=== PATIENT | male | born 1950 | race Caucasian/White ===

== ENCOUNTER → 2016-11-30 | Outpatient (CLI) | payer OTHER ==
--- NOTE | 2016-12-02 07:54 | PAP/PSG TECHNICIAN REPORT ---
[facility] Instrument Mechanic Polysomnogram Report Study name: None Report date: 12/01/2016 Study date: 11/30/2016 Referring Physician: Eddy Conde M.D. Name: NICKIE LEAL Interpreting Physician: Erik Rosario D.O. Date of : 1950 Instrument Mechanic: NICKI Mir. Sex: Male Age: 66 StudyType: PSG Weight: 200 lbs Height: 66 years, Height 5' 9" Neck Circum:15.5inches BMI: 29.53 Medications: Fish Oil, Pravastatin 40mg, Verapamil HCl 240mg, Patient History Study started on room air with no ETCO2 monitoring in room #8. 66 yr old male here tonight for a diagnostic psg. He said his complains of loud snoring and witnessed apnea. He dies have EDS. His ESS=9/24. Neck circ=15.5inches. He normally sleeps on his sides and back. Parameters Monitored NPSG: E1-M2, E2-M1, Fp1-M2, Fp2-M1, F3-M2, F4-M2, F4-M1, C3-M2, C4-M2, C4-M1, O1-M2, O2-M2, O2-M1, T3-M2, T4-M1, P3-M2, P4-M1, CHIN1, CHIN2, HR, EKG, Legs, PFLOW, SNOR, FLOW, CFLOW, Tidal Volume, THOR, ABDO, SpO2, PLTH, CPRESS, ETCO2 Wave, ETCO2, pH Sleep Architecture Sleep Stages Time at Lights Off 9:44:19 PM STAGES Time (min.) TST (%) Time at Lights On 5:28:19 AM Wake 200.0 -- Total Recording Time (TRT) 464.00 min. N1 34.0 13 Total Sleep Period (TSP) 316.0 min. N2 150.0 57 Total Sleep Time (TST) 263.5min. N3 24.5 9 Awake Time 200.5 min. REM 55.0 21 Wake after Sleep Onset 65.0 min. Sleep Efficiency (SE) 57 % Sleep Onset Latency (BAHMAN) 135.5 min. Number of Stage 1 Shifts None Awakenings 24 Stage Changes 107 Number of REM periods 6 REM 55.0 21 REM Latency 146.0 min. NREM 208.5 79 Body Position Analysis Supine Right Left Side Prone Vertical Total Sleep Time (min.) 209.0 138.0 0.0 138.00 0.0 0.0 Total Sleep Time (%) 48% 52% 0% 52 0% N/A% Total Sleep Time REM (min.) 26.0 29.0 0.0 None 0.0 0.0 Total Sleep Time NREM (min.) 99.5 109.0 0.0 None 0.0 0.0 Intermittent Wake (min.) 83.5 65.7 50.8 None 0.0 0.0 Total Sleep Period (%) 43% None None None None None Arousals Myoclonus (PLM) * Events Count Index Events Count Index Spontaneous 8 2 Events Awake (PLMW) 200 60.0 Respiratory 4 0.9 Events Asleep w/ Arousal (PLMA) 39 8.9 PLM 38 9 Events Asleep w/o Arousal (PLMS) 235 53.5 Snoring 5 1 Total Asleep 274 62.4 Total 55 13 Total 474 61 Respiratory Analysis * CA OA MA CH H RERA Total Count 0 0 0 0 6 0 6 Index 0.0 0.0 0.0 0 1.4 0 1.4 Mean Duration 0.0 0.0 0.0 0.00 24.5 0.0 24.5 Longest Duration 0.0 0.0 0.0 0.00 0.0 0.0 46.5 Respiratory Event Summary Total Supine ~Supine Right Left Prone REM NREM Apneas Count 0 0 0 0 N/A N/A 0 0 Index 0.0 0 0 0.0 N/A N/A 0 0 Hypopneas (4% Desat) Count 6 6 0 0 N/A N/A 3 3 Index 1.4 2.9 0 0.0 N/A N/A 3.3 0.9 Apneas & All Hypopneas Count 6 6 0 0 N/A N/A 3 3 Index 1.4 3 0 0 N/A N/A 3.3 0.9 Respiratory Events (Travel Accommodation Inspector+All Hyp+RERA) Count 6 6 0 0 N/A N/A 3 3 Index 1.4 3 0 0.0 N/A N/A 3.3 0.9 Respiratory Related Arousal Count 4 6 0 0 N/A N/A 1 3 Index 0.9 2 0 0 N/A N/A 1 1 Snoring Analysis Supine Right Left Prone REM NREM Total Snore duration 4.2 min Snores count 117 29 N/A N/A 3 143 146 Snore mean duration 1.7 Sec Snores index 56 13 N/A N/A 3.3 41.2 33.2 TST with snoring (%) 1.6% Desaturation Event Summary: Minimum %SpO2 Event Count Mean/Min/Max Duration(sec.) Desaturation Index % Time In Bed > 90 25 32.1 / 4.0 / 60.0 3.5 94.6 86 - 90 3 22.2 / 6.5 / 33.3 7.3 5.3 81 - 85 1 4.0 / 4.0 / 4.0 327.3 0.0 76 - 80 0 N/A 0.0 0.0 71 - 75 0 N/A 0.0 0.0 66 - 70 0 N/A 0.0 0.0 61 - 65 0 N/A 0.0 0.0 56 - 60 0 N/A 0.0 0.0 51 - 55 0 N/A 0.0 0.0 < 50 0 N/A 0.0 0.0 Total REM NREM Awake <50% 0.0 min. 0.0 min. 0.0 min. 0.0 min. 51 - 60% 0.0 min. 0.0 min. 0.0 min. 0.0 min. 61 - 70% 0.0 min. 0.0 min. 0.0 min. 0.0 min. 71 - 80% 0.2 min. 0.0 min. 0.0 min. 0.2 min. 81 - 90% 24.7 min. 17.5 min. 5.9 min. 1.3 min. 91 - 100% 434.5 min. 37.5 min. 202.2 min. 194.8 min. Average 93 91 92 94 Minimum SpO2 74 85 88 74 Desaturation Event Index 3.4 3.3 2.9 3.9 # Desat. Events below 89% 6 2 2 2 Time(%) with Saturation below 89% 1.6 1.4 0.0 0.1 Time(min.) with Saturation below 89% 7.4 6.6 0.2 0.5 Time (mins) REM (mins) NREM (mins) % of TST SpO2 Below 90% 12 3 N9 4.2 SpO2 Below 88% 2 0 0 1 Heart Rate Analysis Min (bpm) Max (bpm) Average (bpm) Awake 57 237 70 NREM 57 72 62 REM 54 71 62 Overall 54 72 62 Supplemental O2 Values Minimum O2 level: None Value Start Time End Time Instrument Mechanic Comments Mr. Leal slept in the right and left positions. No cardiac arrhythmia noted. PLM's were noted. No bruxism noted. Snoring was noted and scored as a 2 on a scale of 1 through 5 only when he was supine. (0=no snoring, 5=snoring loud enough to be heard through a closed door or down the cantu way) He did not use the restroom during the night. He stated that he slept worse than usual. The final report will be interpreted and signed by a sleep physician. The completed physician report will then be placed in the patient medical record. Therapy (cm H2O) 0 TIB (min.) 463.5 TST (min.) 263.5 Sleep Onset (min.) 135.5 REM Onset From Sleep (min.) 146.0 Sleep Efficiency % 57 Wakefulness (%) 43 Wakefulness (min.) 200.5 NREM 1 (%) 13 NREM 1 (min.) 34.0 NREM 2 (%) 57 NREM 2 (min.) 150.0 NREM 3 (%) 9 NREM 3 (min.) 24.5 REM (%) 21 REM (min.) 55.0 # Arousals 55 Arousal Index 13 # Snore 146 Snore Index 33.2 AHI 1.4 AHI Supine 3 AHI Non-Supine 0 NREM AHI 0.9 REM AHI 3.3 RDI 1.4 # Obstructive Apnea 0 # Central Apnea 0 # Mixed Apnea 0 # Hypopneas 6 RERAs 0 Total Respiratory Events 6 Time Below SpO2 89% (min.) 6.8 Mean NREM SpO2 (%) 92 Mean REM SpO2 (%) 91 Mean Sleep SpO2 (%) 92 Min NREM SpO2 (%) 88 Min REM SpO2 (%) 85 Position Supine (min.) 209.0 Position Non-supine (min.) 138.0 LM Index Sleep 62.4 LM Index NREM 74.0 LM Index REM 18.5 Mean Heart Rate (bpm) 62 Min Heart Rate (bpm) 54
--- NOTE | 2016-12-10 08:15 | Sleep Study ---
Sleep Study Report Date of Service: 11/30/2016[f__Service__Date/Time] Sleep Study Report Clinical data: Patient is a 66-year-old male referred by Dr.Maged Conde of the [facility]. The patient has a history of snoring, nocturnal gasping, and observed apneas. His BMI is 29.53. He has an Lowden score of 9 out of a possible 24. This was an in-lab diagnostic sleep study. Sleep architecture: The total sleep. Was 316.0 minutes. The total sleep time was 263.5 minutes. The sleep efficiency was severely decreased to 57 percent. The sleep latency was severely prolonged to 135.5 minutes. Wake after sleep onset was 65.0 minutes. The REM latency was prolonged to 146.0 minutes. Sleep consisted of stage N1 13 percent, stage N2 57 percent, stage N3 9 percent, and REM sleep 21 percent. Arousal data: Patient had a total of 55 arousals including 8 spontaneous arousals, 4 respiratory arousals, 38 PLM arousals, and 5 snoring arousals. The arousal index was 13. PLM data: The patient had a total of 274 periodic limb movements of sleep for an index severely elevated at 62.4. There were 39 leg movements with arousals for a PLM arousal index of 8.9. Respiratory data: The patient had a total of 6 respiratory events, all hypopneas. Hypopneas were scored according to the 4 percent desaturation rule. The apnea-hypopnea index was normal at 1.4 events per hour. This would reflect that the patient does not have significant sleep apnea. Oximetry data: the average saturation was 93 percent. The minimum saturation was 74 percent. This appears to likely be technical in nature however. It may have reflected movement or a loose pulse oximeter. There was a total of only 2 minutes with saturations less than 88 percent. EKG: The underlying cardiac rhythm was normal sinus. The cardiac rates ranged from 54 to 72 beats per minute with an average of 62 beats per minute. No arrhythmia was noted. Assistant Professor Of Economics comments: Patient slept in the right and left positions. No cardiac arrhythmia noted. PLM noted. No bruxism noted. Snoring was noted and scored as a 2 on a scale of 1 through 5 and only occurred when he was supine. Impressions: 1. Primary snoring 2. Periodic limb movement disorder 3. Insomnia Comments: Patient had severe difficulties initiating sleep. It took him 2 hours and 15 minutes to fall asleep. He did not have any significant sleep apnea. He had frequent periodic limb movements some of which were associated with arousals. It is unknown if the patient has true restless leg syndrome. Clinical correlation is advised in that regard. There was no significant oxygen desaturations. No significant sleep apnea is present. Recommendations: 1. Clinical correlation is advised to determine if the patient's limb movement abnormality is significant. A history should be undertaken to evaluate the possibility of restless legs syndrome. 2. Patient should follow up with his physicians at the [facility]. Copies To 1: Erik Rosario DO; Eddy Conde M.D.
== END | disposition home or self-care (01) ==
LOC: C.NEUR 21:00
PROVIDERS: ATTEND Internal Medicine
DX: G47.39 Other sleep apnea (principal); R06.83 Snoring; G47.61 Periodic limb movement disorder; G47.00 Insomnia, unspecified